=== PATIENT | female | born 1955 | race Caucasian/White ===

== ENCOUNTER → 2016-05-10 | Outpatient (CLI) | payer OTHER ==
[~2016-05-10] MED LIST: CALC-51 PO; OMEP40CA PO; PRLSR20 PO; RANI300T2 PO; VTMD1000 PO
--- NOTE | 2016-05-10 12:34 | DIAGNOSTIC IMAGING REPORT ---
MRI OF THE LUMBAR SPINE WITHOUT CONTRAST CLINICAL HISTORY: Lumbago. Low back pain radiating into right groin. COMPARISON STUDY: No previous studies for comparison. TECHNIQUE: Utilizing a 1.5 Jennifer magnet and dedicated coil, multiplanar, multiecho imaging of the lumbar spine was performed without IV contrast. FINDINGS: For purposes of numbering on since exam, the L5-S1 disc space is assigned to axial image 23 of 25. Vertebral body heights are maintained. An 8 mm T1 and T2 hypointense lesion within the L3 vertebral body is indeterminate although statistically benign. There is no intracanalicular mass or fluid collection. The conus terminates at the upper L2 level. Paravertebral soft tissues are unremarkable. L1-2: There is disc space narrowing with a disc bulge and a superimposed central disc extrusion with inferior subligamentous migration. This results in mild to moderate narrowing of the central canal. L2-3: There is mild disc bulge. There is a tiny central disc protrusion. Ligamentous hypertrophy and facet arthrosis noted. There is mild narrowing the central canal. L3-4: There is disc bulge. The central canal is patent. There is mild narrowing of the right neural foramen. L4-5: There is disc space noted with minimal disc bulge, ligamentous hypertrophy and facet arthrosis. The central canal and left neural foramina are patent. There is mild during of the right neural foramen. L5-S1: There is disc bulge with a small superimposed central disc protrusion. There is mild narrowing of the central canal, lateral recesses and neural foramen. IMPRESSION: 1. Central disc extrusion with inferior subligamentous migration at L1-L2 that results in mild to moderate narrowing of the central canal. 2. Disc bulge with central disc protrusion at L5-S1 that results in mild narrowing of the central canal. 3. Moderate multilevel degenerative disc disease and facet arthrosis of the lumbar spine. 4. 8 mm L3 vertebral body lesion. Although indeterminate, this is statistically benign. Electronically signed by: Giuseppe Bernard M.D. 05/10/2016 12:33 PM Dictated Date/Time: 05/10/2016 12:27 PM
== END | disposition home or self-care (01) ==
LOC: C.MRIBC 10:41
PROVIDERS: ATTEND Physician Assistant
DX: M51.26 Other intervertebral disc displacement, lumbar region (principal); M51.27 Other intervertebral disc displacement, lumbosacral region; M51.37 Other intervertebral disc degeneration, lumbosacral region

== ENCOUNTER 2016-10-17 19:14 | Emergency (ER) | payer OTHER ==
[~2016-10-17] VITALS: Ht 162.6 cm; Wt 124.6 kg
[~2016-10-17 19:14] MED LIST changes: -CALC-51 PO; -PRLSR20 PO
[2016-10-17 19:16] VITALS: TEMP 37; Ht 162.6 cm; Wt 124.6 kg
[2016-10-17] MEDS ORDERED: PRLSR20 PO (19:43)
[2016-10-17 20:08] LABS: BASO % 0.3 %; BASO ABS # 0.02 K/uL (0-0.2); COMPLETE YES; EOS % 2.1 %; HEMATOCRIT 43.7 % (37-47); IG% 0.2 %; LYMPH % 22.1 %; LYMPH ABS # 1.28 K/uL (1.2-3.4); MEAN CELL VOLUME 91.2 fL (80-100); MEAN CORPUSCULAR HEMOGLOBIN 28.8 pg (25-34); MEAN CORPUSCULAR HGB CONC 31.6 g/dl (32-36); MONO % 6.9 %; NEUT % 68.4 %; PLATELET COUNT 257 K/uL (130-400); RED BLOOD COUNT 4.79 M/uL (4.2-5.4); WHITE BLOOD COUNT 5.79 K/uL (4.8-10.8)
--- NOTE | 2016-10-17 20:13 | DIAGNOSTIC IMAGING REPORT ---
HEAD CT NONCONTRAST CT DOSE: 537.48 mGy.cm HISTORY: head pain/pressure TECHNIQUE: Multiaxial CT images of the head were performed without the use of intravenous contrast. Automated exposure control was utilized for this study. A dose lowering technique was utilized adhering to the principles of ALARA. Comparison: None. Findings: Trace fluid level within the right renal sinus. The mastoid air cells are clear. The calvarium and skull base are intact. No mass, hematoma, or midline shift. A 1 cm hypodense focus within the right basal ganglia. This may represent an age-indeterminate lacunar infarct. A 7 mm hypodense focus inferior to the left basal ganglia is consistent with a prominent perivascular space. This is considered to be a normal variant. Impression: A 1 cm hypodense focus within the right basal ganglia. This likely represents an age-indeterminate lacunar infarct. Follow-up brain MRI can be performed if the patient is presenting with stroke like symptoms to assess for acuity. No intracranial hemorrhage identified. Electronically signed by: Robert Pro M.D. 10/17/2016 8:11 PM Dictated Date/Time: 10/17/2016 8:06 PM
[2016-10-17 20:27] LABS: BUN/CREATININE RATIO 15.4 (10-20); CALCIUM 8.6 mg/dl (8.5-10.1); CREATININE 0.86 mg/dl (0.60-1.20)
--- NOTE | 2016-10-17 20:55 | EMERGENCY ROOM VISIT NOTE ---
ED Visit Note First contact with patient: 19:23 CHIEF COMPLAINT: Head pain 5 months HISTORY OF PRESENT ILLNESS: This 61-year-old female patient presented to the emergency department complaining of head pain 4-5 months. The patient reports she has a history of chronic back pain, for which she sees pain management. She states in June, she had a steroid injection, and that her 2 week follow-up, she noted some discomfort on the top of her head. The patient describes the discomfort as a pressure like sensation" on the dorsal aspect of her head. She states there is somewhat of a divot in this location as well. The patient states she has seen her PCP regarding the symptoms, and was initially told that it was allergies. The patient states her PCP wanted to order a CT scan, however the insurance company would not allow it. The patient states her PCP did perform some labs for inflammation, and states they were all negative. The patient states at this time, her PCP attempted to order a MRI, but again the insurance refused. The patient states he has a neurology appointment scheduled for November 12, however the pain worsens today. She states last week, the pain had improved, however today it seems to worsen back to its baseline. The patient describes the pain as "jabbing" and states it does make her feel slightly nauseated. The patient states the pain is constant and rates it an 8/ 10. She states nothing aggravates or alleviates the pain. She states laying down does seem to make it worse though. The patient has not used any pain medication or other therapies. The patient has not had a recent head injury. There has been no loss of consciousness or altered mental status. There has been no vomiting. The patient complains of no neck pain. The patient denies bowel or bladder dysfunction. The patient denies any other injuries or symptoms. REVIEW OF SYSTEMS: A 10 system review of systems was performed with positives and pertinent negatives listed in the history of present illness. All other systems were reviewed and are negative. ALLERGIES: None MEDICATIONS: Omeprazole, "something for my cholesterol" PMH: Hyperlipidemia, GERD SOCIAL HISTORY: The patient lives locally with family. She denies drug, tobacco use. The patient admits to occasional alcohol use. PHYSICAL EXAM: Vital Signs: Reviewed Nurse's notes, vital signs stable. GENERAL : This is a 61-year-old white female, in no acute distress, well-developed, well -nourished. NEURO: The patient is alert, oriented to person place and time, and coherent. Normal mini mental status exam. Negative Romberg and pronator drift. Cerebellar function intact. HEAD: Normocephalic, atraumatic. There is no obvious indentation or abnormality of the skull. There is no tenderness on palpation of the head. There are no lacerations or open wounds. EYES: Pupils are equal round and reactive to light and accommodation. EOMs are full and optic discs and fundi are normal. There is no swelling or discoloration of the tissue surrounding the eyes. EARS: External auditory canals clear without blood. NOSE: Patent without tenderness. No septal hematoma. FACE: No facial bone tenderness. NECK: Supple. There is no cervical spine tenderness. The patient does not have tenderness with movement of the neck. RADIOLOGY: CT HEAD WITHOUT CONTRAST: Findings: Trace fluid level within the right renal sinus. The mastoid air cells are clear. The calvarium and skull base are intact. No mass, hematoma, or midline shift. A 1 cm hypodense focus within the right basal ganglia. This may represent an age-indeterminate lacunar infarct. A 7 mm hypodense focus inferior to the left basal ganglia is consistent with a prominent perivascular space. This is considered to be a normal variant. Impression: A 1 cm hypodense focus within the right basal ganglia. This likely represents an age-indeterminate lacunar infarct. Follow-up brain MRI can be performed if the patient is presenting with stroke like symptoms to assess for acuity. No intracranial hemorrhage identified. ED COURSE: I examined the patient. A CT scan and basic labs were ordered and reviewed. These were all negative for acute findings, however the CT scan did show an area of ischemia. The patient is not having any symptoms at this time, said I do not feel that an MRI emergently in the emergency department is necessary. I did encourage the patient to follow up if she experiences any worsening of her symptoms or any strokelike symptoms. The patient was discharged home in good condition ambulatory. DIFFERENTIAL DIAGNOSIS: Head injury, concussion, contusion, intracranial hemorrhage, intracranial infarct, migraine, malignancy, infection, meningitis, and others DIAGNOSIS: Head pain DISCHARGE INSTRUCTIONS: Rest today in a quiet, peaceful, dark environment and get a full 8-10 hrs of sleep tonight. Avoid loud noises, smoke/smoking, alcohol, bright lights, stress, or physical exertion today to minimize the chance the headache may return. Continue current medications as prescribed. Ibuprofen(Motrin, Advil) may be used for fever or pain. Use 600mg every six hours as needed. Take with food. Avoid using more than 2400mg in a 24 hour period. Do not use 2400mg per day for more than three consecutive days without physician direction. Prolonged inappropriate use can lead to stomach upset or ulcers. (AND/OR) Acetaminophen(Tylenol) may be used for fever or pain. Use 1000mg every six hours as needed. Avoid using more than 3000mg in a 24 hour period. Return to the ER for passing out, worsening headache, vision problems, confusion , neck stiffness/pain, fevers, vomiting, worsening of your condition, or as needed. Follow up with your primary physician in 2-3 days for a recheck of your current condition. Follow-up with neurology regularly scheduled appointment. They may want to complete an MRI to further evaluate her symptoms. Current/Historical Medications Scheduled Omeprazole (Prilosec), 40 MG PO DAILY Scheduled PRN Ranitidine (Zantac), 300 MG PO HS PRN for prn Allergies Coded Allergies: No Known Allergies (Unverified , 10/17/16) Vital Signs Date Time Temp Pulse Resp B/P (MAP) Pulse Ox O2 Delivery O2 Flow Rate FiO2 10/17/16 21:01 82 18 155/66 97 10/17/16 20:46 86 97 10/17/16 20:31 87 143/88 95 10/17/16 20:16 92 95 10/17/16 20:11 89 20 159/87 96 Room Air 10/17/16 19:16 37.0 100 20 166/92 100 Room Air Laboratory Results 10/17/16 19:55 Red Blood Count 4.79, Mean Corpuscular Volume 91.2, Mean Corpuscular Hemoglobin 28.8, Mean Corpuscular Hemoglobin Concent 31.6, Mean Platelet Volume 10.0, Neutrophils (%) (Auto) 68.4, Lymphocytes (%) (Auto) 22.1, Monocytes (%) (Auto) 6.9, Eosinophils (%) (Auto) 2.1, Basophils (%) (Auto) 0.3, Neutrophils # (Auto) 3.96, Lymphocytes # (Auto) 1.28, Monocytes # (Auto) 0.40, Eosinophils # (Auto) 0.12, Basophils # (Auto) 0.02 10/17/16 19:55 Test 10/17/16 19:55 White Blood Count 5.79 K/uL (4.8-10.8) Red Blood Count 4.79 M/uL (4.2-5.4) Hemoglobin 13.8 g/dL (12.0-16.0) Hematocrit 43.7 % (37-47) Mean Corpuscular Volume 91.2 fL (80-100) Mean Corpuscular Hemoglobin 28.8 pg (25-34) Mean Corpuscular Hemoglobin Concent 31.6 g/dl (32-36) Platelet Count 257 K/uL (130-400) Mean Platelet Volume 10.0 fL (7.4-10.4) Neutrophils (%) (Auto) 68.4 % Lymphocytes (%) (Auto) 22.1 % Monocytes (%) (Auto) 6.9 % Eosinophils (%) (Auto) 2.1 % Basophils (%) (Auto) 0.3 % Neutrophils # (Auto) 3.96 K/uL (1.4-6.5) Lymphocytes # (Auto) 1.28 K/uL (1.2-3.4) Monocytes # (Auto) 0.40 K/uL (0.11-0.59) Eosinophils # (Auto) 0.12 K/uL (0-0.5) Basophils # (Auto) 0.02 K/uL (0-0.2) RDW Standard Deviation 45.2 fL (36.4-46.3) RDW Coefficient of Variation 13.5 % (11.5-14.5) Immature Granulocyte % (Auto) 0.2 % Immature Granulocyte # (Auto) 0.01 K/uL (0.00-0.02) Anion Gap 7.0 mmol/L (3-11) Est Creatinine Clear Calc Drug Dose 88.5 ml/min Estimated GFR () 83.9 Estimated GFR (Non- 72.4 BUN/Creatinine Ratio 15.4 (10-20) Calcium Level 8.6 mg/dl (8.5-10.1) Departure Information Impression Primary Impression: Head pain Dispostion Home / Self-Care Condition GOOD Referrals Thomas Allen M.D. (PCP) Patient Instructions ED Headache Tension, My [facility] Additional Instructions Rest today in a quiet, peaceful, dark environment and get a full 8-10 hrs of sleep tonight. Avoid loud noises, smoke/smoking, alcohol, bright lights, stress, or physical exertion today to minimize the chance the headache may return. Continue current medications as prescribed. Ibuprofen(Motrin, Advil) may be used for fever or pain. Use 600mg every six hours as needed. Take with food. Avoid using more than 2400mg in a 24 hour period. Do not use 2400mg per day for more than three consecutive days without physician direction. Prolonged inappropriate use can lead to stomach upset or ulcers. (AND/OR) Acetaminophen(Tylenol) may be used for fever or pain. Use 1000mg every six hours as needed. Avoid using more than 3000mg in a 24 hour period. Return to the ER for passing out, worsening headache, vision problems, confusion , neck stiffness/pain, fevers, vomiting, worsening of your condition, or as needed. Follow up with your primary physician in 2-3 days for a recheck of your current condition. Follow-up with neurology regularly scheduled appointment. They may want to complete an MRI to further evaluate her symptoms. Problem Qualifiers Primary Impression: Head pain Headache type: unspecified Headache chronicity pattern: chronic headache Intractability: intractable Qualified Codes: R51 - Headache
[2016-10-17 21:01] VITALS: BP 155/66; PULSE 82; O2SAT 97
== END 2016-10-17 21:04 | disposition home or self-care (01) ==
LOC: C.EDB 19:14 → C.EDC 21:04
DX: R51 Headache (principal); K21.9 Gastro-esophageal reflux disease without esophagitis